=== PATIENT | male | born 1950 | race Caucasian/White ===

== ENCOUNTER 2018-01-28 09:00 | Outpatient (RCR) | payer OTHER ==
--- NOTE | 2018-01-01 14:02 | PT INITIAL EVALUATION ---
MEDICAL DIAGNOSIS: I63.9 Cerebral infarction, unspecified TREATMENT DIAGNOSIS: Altered gait and balance DATE OF ONSET: 05/19/17 SUBJECTIVE: Eliazar Sloan presents to PT to continue improving his gait, balance, strength and mobility after sustaining a L CVA on 05/19/2016. He would like to return to riding his motorcycle. He would also like to write better and states he can't read since his CVA. He denies pain. 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 OBJECTIVE: Posture: LE's ER 35 degrees B, weight on heels more than forefeet. R hand AROM extension 0 degrees at MTP's, flexion without intrinsic function ( flexes at the MTP's with IP's extended. ROM: LE's WFL, with R ankle AROM DF 10 degrees. R shoulder AROM flexion 100 degrees, elbow extension 0 degrees. R hand AROM extension 0 degrees at MTP's, flexion without intrinsic function (flexes at the MTP's with IP's extended). Eliazar's unable to form an ape hand position with his R hand and has difficulty demonstrating how to grasp a motorcycle residential sales consultant with shoulder abducted. Eliazar's able to sit on a gym ball uneven surface, and scan left and right with trunk and head control. Strength: R LE 4/5. R hand intrinsics 1/5, wrist extensors 3-/5, wrist flexors 3 +/5. Special Tests: Negative clonus at the wrist and ankle. Mobility: Sit to line service attendant one attempt, no UE use. Supine to sit with difficulty due to weak trunk. Eliazar demonstrates swinging his R LE over the seat height of his motorcycle with low R foot. Gait: Gait with single point cane with stiff knee motion, mild vaulting over the ankle at push off phase, DF in swing phase WNL. Eliazar has infrequent retro balance disturbance after turning and stopping, L and R. Balance: Grier Balance Assessment 48/56, a 14% impairment. Eliazar turns slowly and safely L and R, with turning R with less R foot tile picker. He has retro balance disturbance and loss with static stand >2 minutes. Other Objective Findings: Eliazar has word finding difficulty and difficulty with time and history. ASSESSMENT: Eliazar Sloan presents with altered gait and balance, R sided weakness who has good potential to improve his gait, balance, mobility to ride his motorcycle. I feel OT is warranted for his hand function for writing and grasping a motorcycle handle, and speech therapy for cognition. Please consider ordering these rehabilitations to his program here. I'd like to work intensive therapy 3x/week to goals set. Short Term Goals 4 weeks: Eliazar demonstrates trunk control with static balance without retro balance disturbance, swings his R leg high enough to clear his motorcycle seat. 8 weeks: Eliazar is physically able to ride his motorcycle if cognition allows. Patient's Goals Ride his motorcycle, read and write. PLAN: Patient to be seen for Strengthening/condition Range of Motion Spinal Stabilization Stretching Neuromuscular Re-ed Gait Trg/Balance Trg Home Exercise Program 3x/Week for 2 Months Thank you for this referral. If you have any questions, comments, or concerns about this report or plan, please contact me at . SHAYNAD
--- NOTE | 2018-01-21 09:57 | PT PLAN OF CARE ---
Physician: Dr. Virginie Andrea Patient is being seen: 3x/week Therapist: Gillian Amador PT Medical Diagnosis: I63.9 Cerebral infarction, unspecified Treatment Diagnosis: Altered gait and balance Date of Onset: 05/19/17 Date of Initial Evaluation: 01/01/18 Date patient was last seen: 01/21/18 Number of treatments: 10 Number of cancellations/No shows: 0 INTERVENTIONS: Strengthening/condition Stretching Neuromuscular Re-ed Gait Trg/Balance Trg Home Exercise Program GOALS: 4 weeks: Eliazar demonstrates trunk control with static balance without retro balance disturbance (met), swings his R leg high enough to clear his motorcycle seat (met). 8 weeks: Eliazar is physically able to ride his motorcycle if cognition allows (progressing). PATIENT'S GOAL: Ride his motorcycle (not met), read and write (not met). Patient Compliance: Excellent Prognosis: Excellent Reasons for continuing therapy: S: Eliazar relates he's swung his R LE over his motorcycle seat without difficulty. He hasn't ridden it yet. Posture: LE's ER 25 degrees B, weight even between heels and fore feet. ROM: LE's WFL. R shoulder AROM flexion 110 degrees, elbow extension 0 degrees. Strength: R quad 4+/5, Tib. ant. 4+/5, PF 2+/5, hamstrings 3/5. Balance: Grier Balance Assessment improved to 49/56 (1 point). Eliazar has reduced retro balance disturbance with static stand. Special Tests: Negative clonus at the wrist and ankle. Mobility: Sit to clinical services professional one attempt, no UE use. Eliazar demonstrates swinging his R LE slowly over the seat height of his motorcycle with R foot clearing well. Gait: After exercise, Eliazar's able to ambulate with R knee flexion to 25 degrees, instead of a stiff knee. He turns L and R more smoothly. A/P: Eliazar Sloan is improving function, gait, balance and strength. If you agree, we'll continue another month at 3x/week, working on higher level balance , strengthening. Thank you. ALEENA
[~2018-01-28 09:00] MED LIST: FEXO-1 PO; GABA-490 PO; NIAC250T25 PO
--- NOTE | 2018-03-06 11:02 | PT PLAN OF CARE ---
Physician: Dr. Virginie Andrea Patient is being seen: 3x/week Therapist: Gillian Amador, PT Medical Diagnosis: I63.9 Cerebral infarction, unspecified Treatment Diagnosis: Altered gait and balance Date of Onset: 05/19/17 Date of Initial Evaluation: 01/01/18 Date patient was last seen: 01/28/18 Number of treatments: 13 Number of cancellations/No shows: 0 INTERVENTIONS: Strengthening/condition Neuromuscular Re-ed Gait Trg/Balance Trg Home Exercise Program GOALS: 4 weeks: Eliazar demonstrates trunk control with static balance without retro balance disturbance (met), swings his R leg high enough to clear his motorcycle seat (met). 8 weeks: Eliazar is physically able to ride his motorcycle if cognition allows (progressing). PATIENT'S GOAL: Ride his motorcycle (not met), read and write (not met). Patient Compliance: Excellent Prognosis: Excellent Reasons for discontinuing therapy: Eliazar requires DC from PT before [facility] will [facility]ote PT visits. Please read POC of 01/21/18 for last measurements. A/P: Eliazar Sloan was progressing well with PT. I have requested continue 3x /week, and I would like another 2 months. Thank you. ALEENA
== END 2018-01-28 18:00 | disposition home or self-care (01) ==
LOC: PT 09:00
PROVIDERS: ATTEND Family Medicine
DX: I69.928 Other speech and language deficits following unspecified cerebrovascular disease (principal); I69.939 Monoplegia of upper limb following unspecified cerebrovascular disease affecting unspecified side; R53.1 Weakness
CPT/HCPCS: 97162

== ENCOUNTER 2018-02-05 09:45 | Outpatient (RCR) | payer OTHER ==
--- NOTE | 2018-01-04 15:05 | OT INITIAL EVALUATION ---
SUBJECTIVE: Patient is a 67 year old right hand dominate male s/p CVA in April 2016. Patient reports that he received therapy afterwards, but has not had any therapy since October of 2016. Patient reports that he is able to dress himself , but does need some assistance with buttons, snaps, and zippers from his daughter, who lives with the patient. Patient reports that he is able to complete grooming and hygiene on his own. He reports that he is able to do light cooking, cleaning, and that the daughter helps with laundry, shopping, and transportation. Patient's main goal is to ride his motorcycle again. Previous Medical History: please refer to chart Current Limitations: decreased strength and coordination of the right hand, decreased endurance Occupation: N/A OBJECTIVE: ROM: Right Left Shoulder Flexion WFL WFL Shoulder Extension WFL WFL Shoulder Abduction WFL WFL Elbow Flexion WFL WFL Wrist Extension WFL WFL Strength: MMT: Right Left Shoulder Flexion 3/5 5/5 Shoulder Extension 3/5 5/5 Shoulder Abduction 3/5 5/5 Elbow Flexion 4/5 5/5 Wrist Extension 4/5 5/5 (5= normal, 4= good, 3= fair, 2= poor, 1= trace) Sales Coach Right = 45.7# (Age/gender normative= 91.1#) Left= 75.3# (Age/gender normative=76.8#) Lateral Pinch Right = 11.8# (Age/gender normative= 23.4#) Left= 20# (Age/gender normative= 22#) 3 Point Pinch Right = 10.3# (Age/gender normative= 21.4#) Left= 19.3# (Age/gender normative= 21.2#) Sensation: intact Special Test: 9 Hole Peg Test (dexterity) Right= unable to complete the test, attempted and the patient took [address] one peg, patient got frustrated and wanted to end the test (Age/gender normative= 20.7 seconds) Left= 24 seconds (Age/gender normative= 22.9 seconds) ASSESSMENT Patient presents with decreased bilateral UB strength, right shoulder is weaker compared to the left side. Patient presents with decreased slice cutting machine operator helper and pinch strength with the right hand. Patient presents with decreased fine motor coordination with the right side preventing him in being able to complete ADLs. Patient to benefit from OP OT intervention to help increase UB strength, slice cutting machine operator helper, pinch and fine motor coordination to help with independence with ADLs. Short Term Goals 1.Patient will be able to complete the 9 Hole Peg Test with the right hand. 2.Patient will complete HEP without assistance. 3.Patient will be able to complete buttons, snaps, and zippers using the right hand for self cares. 4.Patient will increase right UB strength from 3/5 to 4/5 to increase overall functional endurance when completing ADLs. PLAN: Plan to see patient 3 times a week for 14 visits. Plan of care to include : self care re-training, ther ex, there act, adaptive equipment training, energy conservation techniques Thank you for this referral. If you have any questions, concerns, or comments about this report or plan, please contact me at [phone]. Lori Lopez MS, OTR/L Occupational Therapist [facility]
--- NOTE | 2018-03-06 11:49 | OT DISCHARGE SUMMARY ---
SUBJECTIVE: Patient is a 67 year old right hand dominate male s/p CVA in April 2016. Patient reports that he received therapy afterwards, but has not had any therapy since October of 2016. Patient reports that he is able to dress himself , but does need some assistance with buttons, snaps, and zippers from his daughter, who lives with the patient. Patient reports that he is able to complete grooming and hygiene on his own. He reports that he is able to do light cooking, cleaning, and that the daughter helps with laundry, shopping, and transportation. Patient's main goal is to ride his motorcycle again. Patient has been seen by OP OT services for 14 visits that were approved by the [place]. Previous Medical History: please refer to chart Current Limitations: decreased strength and coordination of the right hand, decreased endurance Occupation: N/A OBJECTIVE: ROM: Right Left Shoulder Flexion WFL WFL Shoulder Extension WFL WFL Shoulder Abduction WFL WFL Elbow Flexion WFL WFL Wrist Extension WFL WFL Strength: MMT: Right Left Shoulder Flexion 3/5, same 5/5 Shoulder Extension 3/5, same 5/5 Shoulder Abduction 3/5, same 5/5 Elbow Flexion 4/5, same 5/5 Wrist Extension 4/5, same 5/5 (5= normal, 4= good, 3= fair, 2= poor, 1= trace) Civil Transportation Engineer Right = 45.7#, now 48.3# (Age/gender normative= 91.1#) Left= 75.3#, now 76.3# (Age/gender normative=76.8#) Lateral Pinch Right = 11.8#, now 16.3# (Age/gender normative= 23.4#) Left= 20#, now 21.5# (Age/gender normative= 22#) 3 Point Pinch Right = 10.3#, now 14.2# (Age/gender normative= 21.4#) Left= 19.3#, now 19.5# (Age/gender normative= 21.2#) Sensation: reports of numbness in the right hand and wrist Special Test: 9 Hole Peg Test (dexterity) Right= unable to complete the test, attempted and the patient took [address] one peg, patient got frustrated and wanted to end the test; now took 2 minutes and 28 seconds to complete the entire test with the right hand (Age/gender normative= 20.7 seconds) Left= 24 seconds, now 22 seconds (Age/gender normative= 22.9 seconds) ASSESSMENT Patient's UB is still the same as the initial evaluation. However, cable installer and pinch strength on both hands have increased over the past 14 visits. Initially, patient was unable to perform the 9 Hole Peg Test with the right hand, but now patient was able to complete the entire test. Patient also improved him time with the left hand. Working on overall endurance focusing on the UB and standing while completing fine motor coordination activities with the right hand. Patient has made progress in sessions and OT would recommend that the patient continues with an additional 14 visits to continue to improve UB endurance and strength along with cable installer and pinch strength and fine motor coordination of the right hand. Patient is very motivated in sessions to improve the functional use of the right UB. Short Term Goals 1.Patient will be able to complete the 9 Hole Peg Test with the right hand. MET 2.Patient will complete HEP without assistance. MET 3.Patient will be able to complete buttons, snaps, and zippers using the right hand for self cares. MET 4.Patient will increase right UB strength from 3/5 to 4/5 to increase overall functional endurance when completing ADLs. NOT MET PLAN: Plan to discharge patient at this time. Recommending an additional 14 more visits. Will [facility] from the [facility]. Thank you for this referral. If you have any questions, concerns, or comments about this report or plan, please contact me at [phone]. Lori Lopez MS, OTR/L Occupational Therapist [facility]
== END 2018-02-05 18:00 | disposition home or self-care (01) ==
LOC: OT 09:45
PROVIDERS: ATTEND Family Medicine
DX: I69.30 Unspecified sequelae of cerebral infarction (principal)
CPT/HCPCS: 97165; 97168

== ENCOUNTER 2018-02-28 09:00 | Outpatient (RCR) | payer OTHER ==
--- NOTE | 2018-01-07 19:01 | SPEECH INITIAL EVALUATION ---
[*]INITIAL SPEECH THERAPY EVALUATION REPORT Patient Name: Eliazar Sloan Date of Evaluation: 01-04-2018 Patient : 1950 Clinician: Svetlana Lu M.S., CCC-MEDIA SPECIALIST, KATERINA Julio Treatment Dx: Mild Cognitive Deficit, Expressive Aphasia BACKGROUND The patient is a 67 year old male who was referred to outpatient speech therapy at [facility] for concerns with cognitive deficits secondary to his CVA on 05/19/16. The patient currently lives here in [place] and attended his evaluation with his daughter. The patient reports ongoing difficulty with word finding and recent confusion. COGNITION Cognitive Linguistic Quick Test (CLQT) assesses the relative status of the following five cognitive domains: attention, memory, language, executive functions, and visuospatial skills. This test helps to identify relative strengths and weakness in these five areas. RESULTS of CLQT Severity Attention: No deficit: 161/215 (WNL =180-215) Memory: Moderate deficit: 132/154 (BIT=[id number]) Executive Functions: No deficit: 27/40 (WNL= 24-40) Language: Moderate deficit: 24/37 (WNL=29-37) Visuospatial Skills: No deficit: 89/105 (WNL=82-105) Composite Severity Rating: Mild Cognitive deficits 3.2/4.0 (WNL=3.5-4) LANGUAGE BNT [place] Naming Test The BNT is a neuropsychological assessment tool to measure confrontational word retrieval in individuals with aphasia or other language disturbance. The BNT was administered with the following results: Raw Score 33/60 55% The patient required phonemic cues for 27 stimuli and multiple choice for 17 stimuli. The patient frequently produced verbal paraphasias and phonemic paraphasias and neologisms were also present though less frequent. The patient attempted targets multiple times to try and correct his verbal production with inconsistent success. Pause/Think/Retry is a strategy that works well for him. He reported that he can see the word in his head, but it does not come out of his mouth. SPEECH: Articulation of speech sounds at word, sentence, and conversational level is wnl. VOICE: within functional limits DYSPHAGIA: Patient did not report concerns at this time. SUMMARY COGNITION/LANGUAGE SUMMARY Cognitive Deficits: Mild deficits. The patient presented with deficits in memory and language on the CLQT. This aligns with his reported concerns with confusion and word finding that he experiences daily . Language Deficits: Moderately severe Expressive Aphasia, mild Receptive Aphasia FUNCTIONAL COMMUNICATION The patient presents with mild to moderate cognitive linguistic deficits that reduce functional communication in the home and community, reducing safety and independence. The patient will benefit from ST to address current deficits and allow him to reach personal goals of returning to independent living including transportation, work/volunteer activities, and all IADLS. RECOMMENDATIONS 1. ST 2x/wk to address deficits in cognition and language to promote more efficient communicative function for daily IADLs. PROGNOSIS: Good. Patient demonstrates motivation and has family support. PLAN OF CARE Short Term Goals 1. The patient will perform immediate/short term memory tasks at 90% independently for successful communication related to IADLs with 95%. 2. The patient will utilize 2-3 word finding strategies to increase the efficiency of his communicative intent. 3. The patient will demonstrate cognitive flexibility for transitioning through multimodal communication options independently with 95% for functional cognitive-communication Long-Term Goals 1. The patient will function independently during IADLs. Thank you for this referral. Please call [phone] Svetlana Lu M.S., CCC-MEDIA SPECIALIST, Barbara Leon, GSC Physician Signature Date MTDD
--- NOTE | 2018-02-20 10:03 | SLP PLAN OF CARE ---
SPEECH PATHOLOGY PROGRESS REPORT 10th Visit Physician: Virginie Bruno MD Progress Note Date: 02-19-18 Clinician: Svetlana Lu M.S., CCC-FLOTATION TENDER Patient: Eliazar Sloan : [birth year], 68yrs The patient has been attending ST at [facility] 2wk for a total of 10 visits. He attends scheduled visits regularly. His daughter brings in to therapy. The patient appears in general good health. Current POC The patient has been working on the following short term goals: 1.The patient will perform immediate/short term memory tasks at 90% independently for successful communication related to IADLs with 95%. 2. The patient will utilize 2-3 word finding strategies to increase the efficiency of his communicative intent. 3. The patient will demonstrate cognitive flexibility for transitioning through multimodal communication options independently with 95% for functional cognitive-communication. SUMMARY Continue Current POC. The patient is progressing toward ST goals. Increased functional communication is recorded. The patient is responsive to clinician cues to maximize use of available techniques and modalities for successful cognitive-communicative including transmition of complex ideas and re- organizing of thoughts to promote successful verbal/gestural/written communication. RECOMMENDATION Patient would benefit from continued ST 2wk12 to address above POC Thank you for referring this patient to [facility]- [facility]. Please call [phone] to contact the FLOTATION TENDER. Respectfully, Svetlana Lu M.S., CCC-FLOTATION TENDER Physician Signature Date MTDD
--- NOTE | 2018-03-05 12:44 | SLP PLAN OF CARE ---
SPEECH PATHOLOGY PROGRESS REPORT Progress Note Date: 02/28/2018 Clinician: Svetlana Lu M.S., CCC-INVENTORY REPRESENTATIVE, Shelby Romero B.A., GSC Patient: Eliazar Sloan : 1950 The patient has been attending ST at [facility] 2/wk since 01/03/2018. He attended scheduled visits regularly since last report. The patient continues to appear in general good health. The patient has completed the number of approved visits from the [place] and is awaiting approval on additional treatment sessions. Current POC The patient has been working on the following short term goals: 1. The patient will perform immediate/short term memory tasks at 90% independently for successful communication related to IADLs with 95%. As of 03/04/18: Progressing. Pt is performing short term memory tasks with 80 % indep accuracy across 12 sessions. 2. The patient will utilize 2-3 word finding strategies to increase the efficiency of his communicative intent. As of 03/04/18: Progressing. With min assist Pt is utilizing first letter, semantic cues, and gesture to increase expressive communication. 3. The patient will demonstrate cognitive flexibility for transitioning through multimodal communication options independently with 95% for functional cognitive -communication. As of 03/04/18: Progressing. The Pt transitions between communication modes with 85% accuracy independently. Additional prompting from the clinician increases overall cognitive flexibility. SUMMARY The patient presents with excellent prognosis for continued progress toward functional communication. 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 Continue Current POC. The patient is progressing toward ST goals. Increased functional communication is recorded. RECOMMENDATION Patient would benefit from continued ST to address above POC Thank you for referring this patient to [facility], Speech- Language Pathology. Please call [phone] to contact the INVENTORY REPRESENTATIVE. Respectfully, Svetlana Lu M.S., CCC-INVENTORY REPRESENTATIVE Physician Signature Date [facility]
== END 2018-02-28 18:00 | disposition home or self-care (01) ==
LOC: ST 09:00
PROVIDERS: ATTEND Family Medicine
DX: I69.320 Aphasia following cerebral infarction (principal); I69.319 Unspecified symptoms and signs involving cognitive functions following cerebral infarction

== ENCOUNTER 2018-05-23 09:00 | Outpatient (RCR) | payer OTHER ==
--- NOTE | 2018-04-10 11:03 | PT INITIAL EVALUATION ---
MEDICAL DIAGNOSIS: I63.9 Cerebral infarction unspecified TREATMENT DIAGNOSIS: Same, altered gait and imbalance, R sided weakness DATE OF ONSET: 05/19/17 SUBJECTIVE: Eliazar Sloan returns to PT to resume his gait, balance and strength training to improve function and reduce fall risk after his April, L CVA. He didn't receive authorization for OT or speech this round (so far ). He relates he hasn't ridden his motorcycle as his hand is stiffening, he fell yesterday while bending over to reach a tool. He notes his gait and balance is worsening in his time off PT. REHAB PROBLEM LIST: Decreased Strength Decreased Endurance Decreased Balance Decreased Function Decreased Mobility Decreased Gait PREVIOUS MEDICAL HISTORY: Hypercholesteremia, cataracts, 1970's shrapnel removed from chest. 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 OBJECTIVE: Posture: Heels 3" apart, ER R LE (malleolar torsion), L foot normal angle of stance, steady, even WB through LE's. ROM: LE's WFL, with PROM R ankle DF 10 degrees. Strength: R quad and hamstrings 4/5, ankle DF 3+/5, L LE 5/5. Sensation: R LE NT, but Eliazar relates his R LE is still numb. Special Tests: Saccades with VOR x1 R horizontal field. Eliazar has word finding difficulty and can't form a fist with his hand. Mobility: Independent sit<>stand without UE use, one attempt. Gait: Eliazar still ambulates with a stiff R knee, early ankle DF and R heel strike with SPC. He now turns with control without retro balance loss in 3 seconds, picking up his R foot consistently. He has retro balance loss with heel and toe raises, and with static stand with head motion. Functional Gait Assessment 50% impairment. Stair descent with weak R quad, handrail, non- reciprocating gait. Balance: He has retro balance loss with heel and toe raises, and with static stand with head motion. Grier Balance Assessment 44/56. Double limb support only. Static stand on firm surface with eyes closed steady. ASSESSMENT: Eliazar Sloan has regressed since his discharge from PT January 28, 2018. He's a good candidate to improve gait, reduce fall risk. He was fatigued with balance and exercise, but O2 sats remained in the low 90's and HR 76 to 88 BPM. I recommend a referral for OT and speech for Eliazar as he has R UE and speech deficits. Short Term Goals 1 month: Eliazar ambulates with R knee flexion in late stance, demonstrates corrective balance reactions with posterior balance challenges. 2 months: Eliazar denies falls, is able to get on his motorcycle, demonstrates corrective balance reactions on uneven surfaces. Patient's Goals Ride his motorcycle, improve gait and balance. PLAN: Patient to be seen for Strengthening/condition, Stretching, Neuromuscular Re-ed, Gait Trg/Balance Trg, Home Exercise Program 3x/Week for 14 visits then request more for 3xweek, 2 months Thank you for this referral. If you have any questions, comments, or concerns about this report or plan, please contact me at . [facility]
--- NOTE | 2018-05-08 09:40 | PT PLAN OF CARE ---
Physician: Dr. Virginie Andrea Patient is being seen: 3x/week Therapist: Gillian Amador, PT Medical Diagnosis: I63.9 Cerebral infarction unspecified Treatment Diagnosis: Same, altered gait and imbalance, R sided weakness Date of Onset: 05/19/17 Date of Initial Evaluation: 04/10/18 Date patient was last seen: 05/07/18 Number of treatments: 8 Number of cancellations/No shows: 0 INTERVENTIONS: Strengthening/condition Stretching Neuromuscular Re-ed Gait Trg/Balance Trg Home Exercise Program GOALS: 1 month: Eliazar ambulates with R knee flexion in late stance (met), demonstrates corrective balance reactions with posterior balance challenges ( progressing). 2 months: Eliazar denies falls (met), is able to get on his motorcycle (not met ), demonstrates corrective balance reactions on uneven surfaces (not met). PATIENT'S GOAL: Ride his motorcycle (met), improve gait and balance (both progressing). Patient Compliance: Excellent Prognosis: Good Reasons for continuing therapy: S: Eliazar reports he's worked around his motorcycle but hasn't ridden it. He still demonstrates word finding difficulty and reports R hand grasp in impaired. He hasn't received OT or CORRECTIVE THERAPY AIDE prescriptions. Posture: Heels 3" apart, ER R LE (malleolar torsion), L foot normal angle of stance, steady, even WB through LE's. Gait: Eliazar now ambulates with late R knee flexion at toe off and more R swing phase versus hip hiking with SPC. He turns more smoothly L and R. Functional Gait Assessment remains 50% as Eliazar declines tandem gait attempts but has improved change of cadance and less weaving but discordant steps with gait with head turns. Balance: Improved posterior postural control on firm surfaces with WS from toes to heels, still with difficulty ambulating clearing a low object. Special Tests: No saccades now with VOR x1 R horizontal field but dizziness with 4-5 reps. Eliazar has word finding difficulty and can form a fist with his 4th/5th fingers while index finger and 3rd finger are stiff. Mobility: Independent sit<>stand without UE use, one attempt. A/P: Eliazar Sloan has improved gait and balance with 8 of his 14 visits. I request more visits now so PT isn't interrupted, 3x/week 2 more months. I feel OT and CORRECTIVE THERAPY AIDE should also be prescribed. Thank you. MTDD
--- NOTE | 2018-05-23 17:57 | PT PLAN OF CARE ---
Physician: Virginie Andrea MD Patient is being seen: 2x/week Therapist: Lucio Muro, PT, DPT Medical Diagnosis: I63.9 Cerebral infarction unspecified Treatment Diagnosis: Same, altered gait and imbalance, R sided weakness Date of Onset: 05/19/17 Date of Initial Evaluation: 04/10/18 Date patient was last seen: 05/23/18 Number of treatments: 13 Number of cancellations/No shows: 0 INTERVENTIONS: Strengthening/condition Stretching Neuromuscular Re-ed Gait Trg/Balance Trg Home Exercise Program GOALS: 1 month: Eliazar ambulates with R knee flexion in late stance (met), demonstrates corrective balance reactions with posterior balance challenges ( progressing). 2 months: Eliazar denies falls (met), is able to get on his motorcycle (not met ), demonstrates corrective balance reactions on uneven surfaces (not met). PATIENT'S GOAL: Ride his motorcycle (met), improve gait and balance (both progressing). Patient Compliance: Excellent Prognosis: Good Reasons for continuing therapy: S: Eliazar reports he's worked around his motorcycle but hasn't ridden it. He reports that he feels like he has made significant improvements with his ability to walk, his awareness of his R UE and LE when walking, his ability to speak, and feels comfortable with his home exercise program. Posture: Heels 3" apart, ER R LE (malleolar torsion), L foot normal angle of stance, steady, even WB through LE's. Gait: Eliazar now ambulates with late R knee flexion at toe off and more R swing phase versus hip hiking with SPC. He turns more smoothly L and R. Functional Gait Assessment: . 30% impairment Balance: Improved posterior postural control on firm surfaces with WS from toes to heels, still with difficulty ambulating clearing a low object. Special Tests: Eliazar has his 4th/5th fingers while index finger and 3rd finger are stiff. Mobility: Independent sit<>stand without UE use, one attempt. A/P: Eliazar Sloan has demonstrated significant improvements with functional gait assessment from 50% impairment to 30% impairment over the last 7 sessions. He would continue to benefit from skilled physical therapy to address balance, gait, strength so that he can return to prior level of function. Since he has reached his max limit of visits with his current authorization, he will be discharged from formal PT to HEP. If you have any questions, please contact me at [phone]. Thank you, Lucio Muro, PT, DPT MTDD
== END 2018-05-23 18:00 | disposition home or self-care (01) ==
LOC: PT 09:00
PROVIDERS: ATTEND Family Medicine
DX: I69.30 Unspecified sequelae of cerebral infarction (principal); R53.1 Weakness; R26.89 Other abnormalities of gait and mobility
CPT/HCPCS: 97162

== ENCOUNTER → 2018-05-23 | Outpatient (CLI) | payer MEDICARE ==
[~2018-05-23] MED LIST changes: +ASCO-183 PO; +ASPI-757 PO; +ATOR40TA24 PO; +CHOL10005 PO; +DEXT1DRO15 OP; +FLUO-177 PO; +GABA-549 PO; +LISI-362 PO; +MELA3TAB31 PO; +OMEP-125 PO
[2018-05-23 10:34] LABS: PLATELET COUNT, AUTOMATED 202 K/uL (150-450)
[2018-05-23 10:42] LABS: LDL CHOLESTEROL 56 mg/dl
== END ==
LOC: LAB 09:59
PROVIDERS: ATTEND Internal Medicine
DX: I63.9 Cerebral infarction, unspecified (principal); I10 Essential (primary) hypertension; E78.5 Hyperlipidemia, unspecified
CPT/HCPCS: 36415; 81001; 82040; 82247; 82310; 82374; 82435; 82465; 82565; 82947; 83036; 83718; 84075; 84132; 84155; 84295; 84443; 84450; 84460; 84478; 84520; 85025

== ENCOUNTER 2018-05-31 19:27 | Emergency (ER) | payer MEDICARE ==
[2018-05-31 19:32] VITALS: BP 121/71
--- NOTE | 2018-05-31 20:24 | ER Report ---
History and Physical Time Seen By MD: 19:59 Hx. of Stated Complaint: left ear pain foreign object in left ear HPI/ROS CHIEF COMPLAINT: Foreign body in left ear HISTORY OF PRESENT ILLNESS: This is a 68-year-old male presents to the emergency department for a foreign body in the left ear. Patient states that he removed his hearing aid last night and noticed that the ear but piece was missing, was unable to remove the ear piece. Patient decided to come in for the airbag removal. No other complaints. No bleeding from the ear. Allergies: Coded Allergies: Penicillins (Verified Allergy, Unknown, RASH, 05/31/18) Tetracyclines (Verified Allergy, Unknown, 05/31/18) iodine (Verified Allergy, Unknown, ANAPHYLAXIS, 05/31/18) peanut (Verified Allergy, Unknown, AIRWAY OBSTRUCTION, 05/31/18) shellfish derived (Verified Allergy, Unknown, 05/31/18) Home Meds Reported Medications Omeprazole (OMEPRAZOLE) 20 Mg Capsule.dr, 1 CAP PO QDAY, CAP 05/22/18 Melatonin (MELATONIN) 3 Mg Tablet, 6 MG PO HS 05/22/18 Lisinopril (LISINOPRIL) 10 Mg Tablet, 10 MG PO QDAY, TAB 05/22/18 Gabapentin (GABAPENTIN) 300 Mg Capsule, 600 MG PO QID, CAPSULE 05/22/18 Fluoxetine Hcl (FLUOXETINE HCL) 20 Mg Capsule, 20 MG PO QDAY, CAPSULE 05/22/18 Dextran 70/Hypromellose (ARTIFICIAL TEARS) 1 Each Droperette, 1 EACH OP QID 05/22/18 Cholecalciferol (Vitamin D3) (VITAMIN D3) 1,000 Unit Tablet, 3000 UNIT PO QDAY, TAB 05/22/18 Atorvastatin Calcium (LIPITOR) 40 Mg Tablet, 1 TAB PO QDAY, TAB 05/22/18 Aspirin (ASPIRIN) 325 Mg Tablet, 325 MG PO QDAY, TAB 18 Ascorbic Acid (ASCORBIC ACID) 500 Mg Tablet, 500 MG PO QDAY 05/22/18 Past Medical/Surgical History The patient has a past medical and surgical history of hypertension, hypercholesterolemia, wears CPAP, GERD, arthritis, wears glasses, cataracts, glaucoma, shrapnel and chest that was surgically removed, left carotid endarterectomy ectomy, Reviewed Nurses Notes: Yes Hx Smoking: Yes Smoking Status: Former Smoker, Heavy Tobacco Smoker Exposure to Second Hand Smoke?: No Hx Substance Use Disorder: No Hx Alcohol Use: No Constitutional Vital Sign - Last 24 Hours 05/31/18 19:32 Temp 97.8 Pulse 70 Resp 14 B/P (MAP) 121/71 Pulse Ox 93 O2 Delivery Room Air Physical Exam General appearance: Alert no distress. Respiratory: Chest is non tender, lungs are clear to auscultation. Cardiac: Regular rate and rhythm. Ears: Here blood of the hearing aid in the outer ear canal. No drainage. No trauma. DIFFERENTIAL DIAGNOSIS: After history and physical exam differential diagnosis was considered for foreign body. Medical Decision Making ED Course/Re-evaluation ED Course The patient was admitted to room. A history and physical were obtained. The foreign body in the left ear was identified and removed without incident. Visualization of the left ear canal and tympanic membrane showing no irritation , no erythema, TM landmarks noted no injection. The patient had no other questions or concerns at this time and was discharged home. Decision to Disposition Date: May 31, 2018 Decision to Disposition Time: 20:22 Depart Departure Latest Vital Signs Vital Signs Date Time Temp Pulse Resp B/P (MAP) Pulse Ox O2 Delivery O2 Flow Rate FiO2 05/31/18 19:32 97.8 70 14 121/71 93 Room Air Impression: Primary Impression: Foreign body in left ear Condition: Improved Disposition: HOME OR SELF-CARE Referrals: GENTRY FOSTER MD (PCP) Patient Instructions: Ear Foreign Body (ED) Additional Instructions: Drink plenty of water. Get plenty of rest. The sure to follow up with the environmental educator for repair of ear hearing aid. Return to the ER for any other concerns or worsening symptoms. Problem Qualifiers Primary Impression: Foreign body in left ear Encounter type: initial encounter Qualified Codes: T16.2XXA - Foreign body in left ear, initial encounter WADNA VELAZQUEZ LAW OFFICE MANAGER-BC May 31, 2018 20:24
== END 2018-05-31 20:30 | disposition home or self-care (01) ==
LOC: ER 19:45
DX: T16.2XXA Foreign body in left ear, initial encounter (principal)
CPT/HCPCS: 99282

== ENCOUNTER 2018-07-04 09:45 | Outpatient (RCR) | payer SELFPAY ==
--- NOTE | 2018-06-04 10:52 | OT PLAN OF CARE ---
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 He received OT services December-January 2018. Pt reports independence with ADLs although requires increased time. He reports independence with light meal prep and cleaning. His daughter assists with shopping and transportation. Pt reports he primarily spends time watching tv and desires to improve upper body strength and fine motor function in right hand. Previous Medical History: Please refer to EMR Current Limitations: Decreased strength, ROM, and function of right hand. OBJECTIVE: ROM: Right Left Shoulder Flexion WFL WFL Shoulder Extension WFL WFL Shoulder Abduction WFL WFL Elbow Flexion WFL WFL Wrist Extension WFL WFL Strength: MMT: Right Left Shoulder Flexion 4/5 5/5 Shoulder Extension 4/5 5/5 Shoulder Abduction 3+/5 5/5 Elbow Flexion 5/5 5/5 Wrist Extension 4/5 5/5 Pronation 4/5 5/5 Supination 4/5 5/5 (5= normal, 4= good, 3= fair, 2= poor, 1= trace) Correspondent Right=47# (Age/gender normative=91.1#) Left=78# (Age/gender normative=76.8#) Significant limited flexion with 2nd and 3rd digits. 2nd and 3rd digits remain extended with dexterity tasks. Sensation: Pt reports no concerns or sensation impairments Special Test: 9 Hole Peg Test (dexterity) Right= 4 minutes 20 seconds-pt compensating secondary to decreased dexterity (Age/gender normative=20.7 seconds) Left=33 seconds (Age/gender normative=22.9 seconds) Lateral Pinch Right=18# (Age/gender normative=23.4#) Left=23# (Age/gender normative=22#) Tip Pinch Right=14# (Age/gender normative=21.4#) Left=22# (Age/gender normative=21.2#) ASSESSMENT Patient presents with decreased hydro generation manager and pinch strength with right hand. He presents with decreased dexterity in right digits impairing ability to complete ADLs with dominant side. This patient will benefit from skilled OT intervention to increase right hand strength and dexterity in order to improve independence with ADLs. Short Term Goals 1. Patient will be able to complete 9-hole peg test with right hand and limited compensation. 2. Patient will improve hydro generation manager strength in right hand by 5 pounds in order to improve independence with ADLs. 3. Patient will complete HEP without assistance. PLAN: 2 times a week x4 weeks. Thank you for this referral. If you have any questions, concerns, or comments about this report or plan, please contact me at [phone]. Janel Hi MS, OTR/L Occupational Therapist [facility]
--- NOTE | 2018-06-04 12:04 | PT INITIAL EVALUATION ---
MEDICAL DIAGNOSIS: I63.9 Acute CVA TREATMENT DIAGNOSIS: R26.89 Imbalance, R53.1 Weakness DATE OF ONSET: 05/19/16 SUBJECTIVE: Eliazar Sloan returns to PT to resume gait, balance and strength training for improved functional mobility after his L CVA of 05/19/2016. He isn't driving, has trouble getting on/off his floor to reach for items that have fallen under furniture, is sometimes unsteady turning or ambulating on uneven ground. He still lack sensation in his R LE, ambulates with SPC short distances before his R LE starts to drag. Pain location is L hip and described as ache but he won't rate the pain level. Walking makes L hip pain worse. REHAB PROBLEM LIST: Increased Pain Decreased ROM Decreased Strength Decreased Endurance Decreased Balance Decreased Mobility Decreased Gait PREVIOUS MEDICAL HISTORY: Hypercholesteremia, cataracts, 1969's shrapnel removed from chest. 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 Eliazar would like to improve his stair descent for balance and strength control. OBJECTIVE: Posture: Heels 3" apart, ER R LE (malleolar torsion), L foot normal angle of stance, steady, even WB through LE's. ROM: AROM R ankle improved from April to 15 degrees. Strength: R quad eccentric strength reduced, with non-reciprocating gait descending stairs with SPC. Special Tests: VOR x1 NT today. Mobility: Sit to stand without UE use from 19" height. He can get on/off the floor to a crawling position with a chair or table nearby but not independently. Gait: Functional Gait Assessment 09/27. a 63% impairment. Eliazar doesn't have significant change of gait speed, is unable to ambulate heel/toe, turns >3 seconds, sometimes with balance disturbance with self-recovery. He does ambulate with R knee flexion, heel strike to early heel off for 30 feet with SPC. He can ambulate with head motion with normal line of progression. Balance: Double limb support only. Mild postural sway standing on foam with eyes closed. Other Objective Findings: Seated mild cardio exercise 5 min with O2 on room air 96%, HR 99. ASSESSMENT: Eliazar Sloan has improved short distance gait quality, static postural control and mobility. He's a good candidate to benefit from PT to improve gait, balance, functional strength. Due to the slowness of his motion, I would like to work reflexive and cognitive reactions before suggesting he return to driving. An OT driving program in [place] may be appropriate in the future to assess safe return to driving. He did fair with high level strengthening today. Short Term Goals 1 month: Eliazar ambulates with SPC with R knee flexion and R foot push off, 150 feet. 2 months: Eliazar arises from the floor independently. 3 months: Normal stepping and UE extension protective balance reactions on uneven surfaces, descends a full flight of stairs with reciprocating gait. Patient's Goals Get off the floor independently, descend a full flight of stairs to the basement wash room with reciprocating gait, improve balance on uneven ground to reduce fall risk, walk long distances without dragging R LE. PLAN: Patient to be seen for Strengthening/condition Range of Motion Stretching Neuromuscular Re-ed Gait Trg/Balance Trg Home Exercise Program 2x/Week for 3 months Thank you for this referral. If you have any questions, comments, or concerns about this report or plan, please contact me at . [facility]
--- NOTE | 2018-06-06 11:40 | SPEECH INITIAL EVALUATION ---
[*]INITIAL SPEECH THERAPY EVALUATION REPORT Patient Name: Eliazar Sloan Date of Evaluation: 06-04 and 06-05-2018 Patient : 1950, 68yr Clinician: Svetlana Lu M.S., CCC-APPRENTICE COOK Treatment Dx: Mild Cognitive Deficit, Expressive Aphasia, Motor Speech Deficit BACKGROUND The patient is a 68 year old male who was referred to outpatient speech therapy at [facility] for concerns with cognitive and expressive language deficits secondary to his CVA on 05/19/16. The patient lives in [place]. He lives with his daughter who assists with IADLs . He has L side visual field deficits as well as hearing loss L side. He wears a hearing aid L side. He is largely independent with ADLs. The patients primary concern at this time is return to driving. LANGUAGE BNT [place] Naming Test The BNT is a neuropsychological assessment tool to measure confrontational word retrieval in individuals with aphasia or other language disturbance. The BNT was administered with the following results: Raw Score 38/60 63% The patient corrected with phonemic cues and multiple choice 04/04. The patient perseveration as well as verbal paraphasias and phonemic paraphasias. No neologisms noted. Apraxia of speech also effects performance on confrontational naming tasks. Error awareness is very good. Pt pauses and is often successful with self-correction especially with phonemic cue. Pause/Think/ Retry is a strategy that works well for him. The [place] Diagnostic Aphasia Examination (BDAE) Short Form: Administered to assess current language skills. The raw scores are the correct responses per subtest. The raw scores are then converted to a severity rating scale that measures a persons communicative ability. Percentile rankings are also recorded which compare an individuals score to normative data. Severity ratings are classified as follows: 0-39% severe, 40-69% moderate, 70-89% mild, 90-100% normal Task Raw Score Percentile Rank Word Comprehension 60 Commands 06/07 50 Complex Ideational 03/03 70 Automatized Sequences 01/30 100 Repetition (Words) 01/31 60 Repetition (Sentences) 10/30 60 Responsive Naming 07/08 80 Special Categories 10/09 100 Basic Symbol Recognition 01/30 100 Number Matching 01/30 100 Picture-Word Matching 01/30 100 Oral Reading (Words) 70 Oral Sentence Reading 1/5 10 Written Communication: Grapheme formation errors, spelling errors, paraphasias, pt writing with nondominant hand (left) d/t R side motor deficits. Raw Score: 84/97, 86% Mild Deficits Motor Speech Quick Assessment of Apraxia of Speech This is a non-standardized assessment. It is uses a modified Likert scale to identify specific strengths and weaknesses relative to normalcy and function of speech and communication. APRAXIA TYPE EXERCISE TASK RAW SCORE Oral Apraxia ORAL: Blow air from lungs Smile Bite lower lip Lip Pucker Puff out cheeks Ability to perform task is WNL LINGUAL: Lick your lips Tongue from side to side Stick out tongue Make tongue touch chin Make tongue touch nose Ability to perform task is WNL Apraxia of Speech Vowels in isolation /I/ as in bit, /i/ as in tree, / / as in had, / / as in Chaz, / / as in boot Ability to perform task is WNL Continuants: /m/ as in man, /v/ as in vase, /l/ as in lady, /w/ as in , / / as in shoe Ability to perform task is WNL Plosives/Affricates /t/ as in tiger, /k/ as in kite, /p/ as in pear, / / as in horse show judge, / / as in chair Ability to perform task is mildly affected Diphthongs / / as in , / / as in fowl, / / as in boil, / / as in pay, / / as in fuel Ability to perform task is mildly affected One syllable words Ability to perform task is WNL Two syllable words Ability to perform task is WNL Three syllable words Ability to perform task is WNL Two word phrases Ability to perform task is WNL Three word phrases Ability to perform task is WNL Multiple repetitions Ability to perform task is moderate-severely affected Progressively longer words Ability to perform task is WNL 4-7 word phrases (sentences) Ability to perform task is moderately affected COUNTING AND SERIAL TASKS *Count to 10 by 2s, *Alphabet, *Days of the week, *Months of the year, *Count to 10, Individual Raw Scores w/ 5 as best performance 0 of 5 3 of 5 5 of 5 4 of 5 5 of 5 Ability to perform task is Severely Affected Other Observations Struggles Awareness of errors Self corrects 08/12 Individual Raw Scores w/ 5 as best performance 3 of 5 4 of 5 3 of 5 Ability to perform task is Severely Affected Raw Score: 359/500, 71% Moderately Severe Deficits SPEECH: Articulation of speech sounds at word, sentence, and conversational level is wnl. VOICE: within functional limits DYSPHAGIA: No concerns at this time. SUMMARY COGNITION/LANGUAGE SUMMARY Aphasia: Mild deficits. Expressive language deficits are more severe as compared to receptive language. Reading and writing skills are particularly affected as well as verbal expression at sentence / conversation level. Receptive language deficits are present given complex/ multi-step information. Verbal and semantic paraphasias are present. 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 Awareness of errors is high and pt attempts self correction. A Pause/Think/ Retry strategy for self correction works well for this patient. FUNCTIONAL COMMUNICATION The patients expressive language deficits in verbal, reading and written communication modalities reduce functional communication at a moderately severe level. Day to day functional communication is reduced in the home and community , reducing safety and independence. Speech therapy service are medically necessary at this time to assist patient with return to highest level of function, independence, safety and to reach his personal goals of returning to independence with IADLs living including transportation. RECOMMENDATIONS 1. ST 2wk12 PROGNOSIS: Very good. Patient has demonstrated progress with therapy in the past. PLAN OF CARE STG 1.Pt will produce sentences of 3-5 words given target topic at90% indep 8-8 Pt currently at approx 70% with min or mod assist. 2. Pt will write a single sentence (5+ words) to describe a picture with mod assist on 07/08 opps. 3.Pt will demonstrate 100% success independently with functional tasks/knowledge necessary for return to driving including, response to driving related scenarios, identify/respond to 15 traffic/road signs, use of or compensation for left visual bee, 4. Pt will demonstrate response averaging 1.5sec or less given visual stimuli in both "go/no go" and "choice reaction time" tasks with fewer than 1 in 10 errors independently. LTG Pt will return to driving Pt will demonstrate functional expressive language Thank you for this referral. Please call [phone] Svetlana Lu M.S., CCC-APPRENTICE COOK Physician Signature Date MTDD
--- NOTE | 2018-07-09 14:01 | PT PLAN OF CARE ---
Physician: Dr. Denton Gonsalez Patient is being seen: 2x/week Therapist: Gillian Amador, PT Medical Diagnosis: I63.9 Acute CVA Treatment Diagnosis: R26.89 Imbalance, R53.1 Weakness Date of Onset: 05/19/16 Date of Initial Evaluation: 06/04/18 Date patient was last seen: 07/04/18 Number of treatments: 9 Number of cancellations/No shows: 0 INTERVENTIONS: Strengthening/condition Neuromuscular Re-ed Gait Trg/Balance Trg Home Exercise Program GOALS: 1 month: Eliazar ambulates with SPC with R knee flexion and R foot push off, 150 feet. (partially met) 2 months: Eliazar arises from the floor independently. (not met) 3 months: Normal stepping and UE extension protective balance reactions on uneven surfaces, descends a full flight of stairs with reciprocating gait. (both not met) PATIENT'S GOAL: All not met: Get off the floor independently, descend a full flight of stairs to the basement wash room with reciprocating gait, improve balance on uneven ground to reduce fall risk, walk long distances without dragging R LE. Patient Compliance: Excellent Prognosis: Good Reasons for discontinuing therapy: S: Eliazar has stopped PT as he doesn't have Medicare B coverage. Posture: Heels 3" apart, ER R LE (malleolar torsion), L foot normal angle of stance, steady, even WB through LE's. Gait: Eliazar was able to ambulate 150 feet with SPC with R knee and hip flexion before muscle fatigue. He continued to turn slowly, steadily. Strength: R quad eccentric strength was still reduced. Mobility: Sit to stand without UE use from 19" height. Floor to independent stand wasn't tested before we found out he doesn't have coverage. A/P: Eliazar Sloan did well with high intensity exercise to improve gait. If he ever gets Part B coverage, I would be happy to work with him. I'll DC PT for now. Thank you. ALEENA
--- NOTE | 2018-07-09 17:05 | OT DISCHARGE SUMMARY ---
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 He received OT services December-January 2018. Pt reports independence with ADLs although requires increased time. He reports independence with light meal prep and cleaning. His daughter assists with shopping and transportation. Pt reports he primarily spends time watching tv and desires to improve upper body strength and fine motor function in right hand. Previous Medical History: Please refer to EMR Current Limitations: Decreased strength, ROM, and function of right hand. OBJECTIVE: ROM: Right Left Shoulder Flexion WFL WFL Shoulder Extension WFL WFL Shoulder Abduction WFL WFL Elbow Flexion WFL WFL Wrist Extension WFL WFL Strength: MMT: Right Left Shoulder Flexion 4/5 5/5 Shoulder Extension 4/5 5/5 Shoulder Abduction 3+/5 5/5 Elbow Flexion 5/5 5/5 Wrist Extension 4/5 5/5 Pronation 4/5 5/5 Supination 4/5 5/5 (5= normal, 4= good, 3= fair, 2= poor, 1= trace) Hematology Oncology Consultant Right=47# (Age/gender normative=91.1#) Left=78# (Age/gender normative=76.8#) Significant limited flexion with 2nd and 3rd digits. 2nd and 3rd digits remain extended with dexterity tasks. Sensation: Pt reports no concerns or sensation impairments Special Test: 9 Hole Peg Test (dexterity) Right= 4 minutes 20 seconds-pt compensating secondary to decreased dexterity (Age/gender normative=20.7 seconds) Left=33 seconds (Age/gender normative=22.9 seconds) Lateral Pinch Right=18# (Age/gender normative=23.4#) Left=23# (Age/gender normative=22#) Tip Pinch Right=14# (Age/gender normative=21.4#) Left=22# (Age/gender normative=21.2#) ASSESSMENT Patient presents with decreased professional services consultant and pinch strength with right hand. He presents with decreased dexterity in right digits impairing ability to complete ADLs with dominant side. This patient will benefit from skilled OT intervention to increase right hand strength and dexterity in order to improve independence with ADLs. Short Term Goals 1. Patient will be able to complete 9-hole peg test with right hand and limited compensation. GOAL NOT MET 2. Patient will improve professional services consultant strength in right hand by 5 pounds in order to improve independence with ADLs. GOAL NOT MET 3. Patient will complete HEP without assistance. GOAL NOT MET PLAN: Discharge skilled OT services until pt receives Medicare Part B coverage. Thank you for this referral. If you have any questions, concerns, or comments about this report or plan, please contact me at [phone]. Janel Hi MS, OTR/L Occupational Therapist ALEENA
== END 2018-07-09 18:00 | disposition home or self-care (01) ==
LOC: PT 09:45
PROVIDERS: ATTEND Internal Medicine
DX: R26.89 Other abnormalities of gait and mobility (principal); R53.1 Weakness; Z86.73 Personal history of transient ischemic attack (TIA), and cerebral infarction without residual deficits; M25.552 Pain in left hip; E78.00 Pure hypercholesterolemia, unspecified
CPT/HCPCS: 97162; 97166